=== PATIENT | female | born 1945 | race Caucasian/White ===

== ENCOUNTER 2016-11-23 06:34 | Day surgery (SDC) ==
[2015-12-23 05:46] VITALS: BMI 38.7
[2016-11-23] MEDS ORDERED: LIDOCAINE 1% 20 ML MDV ID ONE (07:40)
[2016-11-23] MEDS ORDERED: LIDOCAINE HCL 2% LUER-JET ONE (09:40)
[2016-11-23] MEDS ORDERED: DIPRIVAN 20 ML VIAL IVP ONE (09:40)
[2016-11-23] MEDS ORDERED: VERSED ONE (09:40)
[2016-11-23 10:43] VITALS: BP 106/67; TEMP 97
--- NOTE | 2016-11-24 11:18 | OP ---
INDICATIONS FOR PROCEDURE: 71-year-old female presents for colonoscopy. She has a past history of colon polyps, the last colonoscopy five years ago. She also has intermittent dysphagia to solid foods. She is scheduled for endoscopy exam. MEDICATIONS: SEE ANESTHESIA NOTES. PROCEDURE: 1. ENDOSCOPY, SUDANESE DILATATION 2. COLONOSCOPY, SNARE POLYPECTOMY. REPORT: The risks, benefits, alternatives and limitations were discussed in detail with the patient. Informed consent was obtained. After adequate sedation was achieved, the video endoscope was introduced in the posterior pharynx and esophagus under direct vision and easily advanced this down to the second portion of the duodenum. I then slowly withdrew. The duodenal mucosa appeared unremarkable as did the duodenal bulb. The antrum and body were relatively unremarkable. The scope was retroflexed to look at the cardia and fundus which was unremarkable. The scope was anteflexed and withdrawn back through the esophagus which was unremarkable. I advanced the scope back down the gastric lumen. I placed a guidewire and withdrew the scope. Over the guidewire, I easily advanced a 54 [place] dilator. The patient tolerated the procedure well with stable vital signs and pulse oximetry throughout. The patient's bed was turned. Digital rectal exam revealed good tone, no masses. The colonoscope was introduced into the rectum and advanced under direct visual guidance to the cecum. The cecum was identified by the appendiceal orifice and IC valve. In the cecum there was a benign appearing 5 mm polyp that I removed by snare technique. I then slowly withdrew the scope in a circumferential manner examining the mucosa quite carefully. I looked on the proximal and distal side of the folds and flexures as best as possible. I was able to retroflex the scope in the right colon and left colon to increase visualization. Withdrawing the scope revealed 3 small lipomas in the ascending colon. In the distal transverse area, there was a second 5 mm semi sessile polyp that I removed by snare technique. There were a few diverticula in the left colon. There was a surgical anastomosis which appeared intact and healthy in the sigmoid area. No other abnormalities were noted including on retroflex view of the anal canal. The prep was good. The withdrawal time was 7 minutes and 52 seconds. The patient tolerated the procedure well with stable vital signs and pulse oximetry throughout. IMPRESSION: 1. Normal upper endoscopy exam. 2. Successful passive dilatation of the esophagus. 3. Two (2) colonic polyps successfully removed. 4. Few diverticula in the left colon. 5. Three (3) small lipomas in the ascending colon. RECOMMENDATIONS: 1. Strict reflux precautions. I have asked the patient to make sure she cuts and chews her food well and eats slowly. 2. Await polyp pathology; if everything is benign, I suggest repeat colonoscopy examination again in 5 years, sooner if there are signs or symptoms to indicate otherwise. 3. Will see her back in the office as needed. CC: DR. DANIS DORSEY
== END 2016-11-23 11:00 | disposition home or self-care (01) ==
LOC: SURG 06:34
PROVIDERS: ATTEND Internal Medicine Gastroenterology
DX: Z09 Encounter for follow-up examination after completed treatment for conditions other than malignant neoplasm (principal); Z86.010 Personal history of colon polyps; D12.0 Benign neoplasm of cecum; D12.3 Benign neoplasm of transverse colon; D17.79 Benign lipomatous neoplasm of other sites; R13.10 Dysphagia, unspecified; K63.89 Other specified diseases of intestine

== ENCOUNTER 2018-04-18 13:10 | Outpatient (CLI) ==
[2015-12-23 05:46] VITALS: BMI 38.7
== END 2018-04-18 13:11 | disposition home or self-care (01) ==
LOC: LAB 13:10
PROVIDERS: ATTEND Family Medicine
DX: Z20.818 Contact with and (suspected) exposure to other bacterial communicable diseases (principal)
CPT/HCPCS: 87081